=== PATIENT | male | born 1965 | race Caucasian/White ===

== ENCOUNTER → 2019-12-14 07:47 | Outpatient (CLI) | payer MEDICARE, SELFPAY ==
[2019-12-14 11:43] LABS: Coronavirus 19 IgG Antibody Negative (Negative); Coronavirus 19 IgM Antibody Negative (Negative)
== END ==
PROVIDERS: Visit Provider Internal Medicine Gastroenterology
DX: Z01.818 Encounter for other preprocedural examination (principal)
CPT/HCPCS: 36415; 86328

== ENCOUNTER 2019-12-17 08:16 | Day surgery (SDC) | payer MEDICARE, SELFPAY ==
[2019-12-11 10:10] VITALS: BMI 37.3
[2019-12-17] VITALS (7 sets, daily range): BP systolic 133–153; BP diastolic 67–80; PULSE 67–82; RESP 18; TEMP 36.6–36.8; O2SAT 97–100
--- NOTE | 2019-12-17 10:01 | HMH.ANESCL ---
[facility] Anesthesia Checklist - Structural Data Admitted From: Home Planned Operative Procedure/s: colonoscopy Consent for Planned Operative Procedure(s) Verified: Yes - Airway Assessment C-Spine Mobility Assessed: Yes TMJ Mobility Assessed: Yes Dentition: Poor Dentition - Neurological Assessment Level of Consciousness: Awake, Alert, Appropriate - Anesthesia Plan Anesthesia Risk discussed: Yes Anesthesia Plan: Verified ASA Class: II Anesthesia Type: MAC [facility] History Medical History: Reports:: Cancer (prostate), Hyperlipidemia, Hypertension Denies:: Diabetes Mellitus Type 1, Diabetes Mellitus Type 2, Internal Pacemaker, MRSA, Seizures *Have you ever received a pneumonia vaccine?: No *Have you received a flu vaccine this season?: No Anesthesia experience/problems:: none Other Surgeries: No: Pacemaker Amputation: No Fractures: No - *Social History Educational Level: Completed High School Smoking Status: Never smoker Alcohol Intake: current Alcohol Intake Frequency:: a few times a month Substance Use Type: denies use *Occupational Status:: disabled Housing: apartment Household Members: none *Travel in the last 8 weeks: None Family Hx:: No significant family history
--- NOTE | 2019-12-17 10:23 | P.PCN_ITS ---
[facility] Procedure Note Procedure Note:: Colonoscopy Procedure Report: Colonoscopy with cold snare polypectomy Endoscopist: Del Bello II, MD Referring physician: Zane Crockett MD (Urology)/Magdalena Medellin MD Date of Procedure: December 17, 2019 Equipment: Olympus 180 variable stiffness pediatric colonoscope Sedation: MAC sedation Indication: Mr. Martinez is a 54-year-old gentleman who is here for screening/surveillance colonoscopy. He does have a history of prostate cancer diagnosed within the last 6 months (last PSA 18). The patient did have a normal colon[facility] in 2012 [facility] [place]. He reports no abdominal pain, weight loss, change in his bowel habits or rectal bleeding. He reports no family history of colon cancer. Procedure: Prior to the procedure, a history and physical exam was performed, and patient's medications and allergies were reviewed. The risks, benefits and alternatives of the sedation and procedure were discussed with the patient. All questions were answered and informed consent was obtained. The patient was brought to the procedure room. Patient identification and proposed procedure were verified by the physician and the nurse. The patient was placed in a left lateral decubitus position and the scope was passed under direct vision. Throughout the procedure, the patient's blood pressure, pulse, and oxygen saturations were monitored continuously. The colonoscopy was accomplished without difficulty. The patient tolerated the procedure well. Findings: On digital rectal examination there was normal rectal tone. There were no external hemorrhoids. The prostate was 2+, minimally firm but symmetric without nodules and no palpable irregularity. The colonoscope was introduced through the anal canal to the rectum and advanced to the cecum. The ileocecal valve and appendiceal orifice were identified. The scope was advanced a short distance into the ileum which appeared grossly normal. The scope was then withdrawn into the colon. The cecum and ascending colon were normal. There was an 8 mm polyp (probable serrated adenoma) in the transverse removed via cold snare polypectomy. There were 2 additional polyps (descending polyp x1 (3 mm) and rectal polyp x1 (4 to 5 mm)) which were removed via cold snare polypectomy. There were no other mucosal abnormalities identified. Upon retroflexion within the rectum there were grade 1-2 internal hemorrhoids.The preparation was excellent throughout with Hamlin Preparation Score of 9. The cecal time was 12 minutes. Impression: 1. Colonic polyps x3 2. Grade 1-2 internal hemorrhoids Plan: I will follow up the polyp pathology and recommend repeat colonoscopy again in 5 years based upon the polyp histology. I would encourage fiber supplementation on a long-term daily maintenance basis.
== END 2019-12-17 11:22 | disposition home or self-care (01) ==
LOC: OUTP 08:19
PROVIDERS: PCP Family Medicine; Visit Provider Internal Medicine Gastroenterology
PROC: 0DJD8ZZ Inspection of Lower Intestinal Tract, Via Natural or Artificial Opening Endoscopic (ICD-10-PCS; CPT 45378; principal; 2019-12-17 09:30)
DX: Z12.11 Encounter for screening for malignant neoplasm of colon (principal); K63.5 Polyp of colon; K64.0 First degree hemorrhoids; Z85.46 Personal history of malignant neoplasm of prostate; I10 Essential (primary) hypertension; E78.5 Hyperlipidemia, unspecified; Z79.899 Other long term (current) drug therapy
CPT/HCPCS: 45380; 45385; 88305